=== PATIENT | female | born 1965 | race Asian ===

== ENCOUNTER 2016-10-31 09:27 | Outpatient (CLI) | payer OTHER ==
[~2016-10-31 09:27] MED LIST: ALBU90AE13 INH; ALEN70TA19 PO; AMLO2.5T PO; AMLO5TAB PO; BACTRIM DS1 TAB PO; BUDE1AER5 INH; CENTRUM SILVER PO; DIOVAN320 MG PO; FISH OIL PO; FLOVENT HFA220 MCG IN; GABA300C2 PO; HYDR25TA60 PO; PANT40TA PO; RLFLU500T PO; TRAM50TA PO; VITA400C10 PO
== END 2016-10-31 19:05 | disposition home or self-care (01) ==
LOC: MAMMO 09:27
DX: Z12.31 Encounter for screening mammogram for malignant neoplasm of breast (principal)
CPT/HCPCS: G0202-TC